=== PATIENT | male | born 2000 | race Caucasian/White ===

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

== ENCOUNTER → 2022-10-08 | Outpatient (REF) | payer BC ==
[~2022-10-08] MED LIST: HYDR-3713 PO
== END ==
LOC: M WUC 17:32
PROVIDERS: ATTEND Physician Assistant
DX: J02.9 Acute pharyngitis, unspecified (principal)